=== PATIENT | male | born 1965 | race Caucasian/White ===

== ENCOUNTER 2018-04-13 17:42 | Emergency (ER) | payer OTHER ==
[~2018-04-13] VITALS: Ht 180.3 cm; Wt 106.1 kg
[2018-04-13] MEDS ORDERED: LORAZEPAM 1 MG TABLET ONE (18:21)
--- NOTE | 2018-04-13 18:29 | NUR ---
PT PRESENTED TO THE ER WITH A C/O CP/ANXIETY. PT IS IN CUSTODY WITH NO ALEM [employer] AND IS IN 1 HANDCUFF ATTACHED TO THE [place] [employer]. PT IS ON THE MONITOR AND CONTINUOUS PULSE OX. VSS.
[2018-04-13] MEDS ORDERED: LORAZEPAM 1 MG TABLET PO ONE (18:30)
--- NOTE | 2018-04-13 18:49 | NUR ---
Patient discharged to [facility] in stable condition. Written and verbal after care instructions given. Patient verbalizes understanding of instruction. PT REC'D 100MG ZOLOFT FROM HIS HOME MEDICATION, PER Emily THURMAN NP. PT AMBULATED OUT IN HANDCUFFS WITH A STEADY GAIT. VSS.
[2018-04-13 18:53] VITALS: BP 140/90
== END 2018-04-13 18:55 ==
LOC: ER 17:55
DX: F41.9 Anxiety disorder, unspecified (principal); R07.89 Other chest pain; Z85.22 Personal history of malignant neoplasm of nasal cavities, middle ear, and accessory sinuses; Z88.0 Allergy status to penicillin; Z88.8 Allergy status to other drugs, medicaments and biological substances
CPT/HCPCS: 93005; 99283; A4606